=== PATIENT | male | born 1950 | race Caucasian/White ===

== ENCOUNTER → 2016-04-22 | Outpatient (CLI) | payer BC ==
[~2016-04-22] MED LIST: DOXYCYCLINE 10100 MG PO; NAPROSYN 2250 MG/TAB PO; PERCOCET 325 MG1 TA2 PO
[2016-04-22 11:10] LABS: HEMOGLOBIN 14.6 g/dl (13.5-18.0)
[2016-04-22 11:18] LABS: HEMATOCRIT 39.3 % (42.0-52.0)
== END ==
LOC: COL.LAB 09:11
PROVIDERS: Internal Medicine Gastroenterology
DX: E83.118 Other hemochromatosis (principal)

== ENCOUNTER → 2016-05-20 | Outpatient (CLI) | payer BC ==
[2016-05-20 09:21] LABS: HEMOGLOBIN 14.2 g/dl (13.5-18.0)
[2016-05-20 09:38] LABS: HEMATOCRIT 38.1 % (42.0-52.0)
== END ==
LOC: COL.LAB 08:54
PROVIDERS: Internal Medicine Gastroenterology
DX: E83.118 Other hemochromatosis (principal)

== ENCOUNTER → 2016-06-24 | Outpatient (CLI) | payer BC ==
[2016-06-24 09:24] LABS: HEMOGLOBIN 14.6 g/dl (13.5-18.0)
[2016-06-24 09:33] LABS: HEMATOCRIT 38.8 % (42.0-52.0)
== END ==
LOC: COL.LAB 08:38
PROVIDERS: Internal Medicine Gastroenterology
DX: Z01.89 Encounter for other specified special examinations (principal)

== ENCOUNTER → 2016-06-29 | Outpatient (CLI) | payer BC ==
[2016-06-29 11:28] LABS: TOTAL IRON BINDING CAPACITY 345 ug/dL (261-462)
== END ==
LOC: COL.LAB 09:05
PROVIDERS: Internal Medicine Gastroenterology
DX: E83.119 Hemochromatosis, unspecified (principal)